=== PATIENT | male | born 1955 | race Caucasian/White ===

== ENCOUNTER → 2017-12-06 | Outpatient (CLI) | payer OTHER ==
[~2017-12-06] MED LIST: ASPIR 8181 MG PO; COREG CR10 MG PO; DIOVAN40 MG PO; FISH OIL1 IU PO; JANUVIA50 MG PO; LASIX20 MG PO; LIPITOR40 MG PO
[2017-12-06 07:23] LABS: BUN 25 mg/dl (7-24); CHLORIDE 108 mmol/L (98-107); CREATININE 0.93 mg/dL (0.70-1.30); POTASSIUM 3.9 mmol/L (3.5-5.1); SODIUM 143 mmol/L (136-145)
== END | disposition home or self-care (01) ==
LOC: LAB 06:53
PROVIDERS: Specialist
DX: I48.91 Unspecified atrial fibrillation (principal)

== ENCOUNTER 2018-04-01 18:36 | Inpatient (IN) | payer OTHER ==
[~2018-04-01] VITALS: Ht 177.8 cm; Wt 112.9 kg
[2018-04-01] VITALS (7 sets, daily range): BP systolic 112–168; BP diastolic 58–81
--- NOTE | ~2018-04-01 | EKG ---
[place], [place] ELECTROCARDIOGRAM REPORT NAME: MASSIMO DISLA UNIT #: [id number] ROOM: 526 DOCTOR: REJI DRAFT REPORT BIRTHDATE: [birth year] [facility] Test Date: 2018-04-01 Test Time: 18:51:20 Pat Name: MASSIMO DISLA Department: Room: 526 Gender: M Flumer: Zhanna Kovacs : 1955 Requested By: ROBBIE PALOMARES Order Number: [id number] Reading MD: Meagan Valdes MD Measurements Intervals [place] Rate: 79 P: 26 CT: 230 QRS: 241 QRSD: 135 T: 52 QT: 412 QTc: 473 Interpretive Statements Atrial-sensed ventricular-paced rhythm No further analysis attempted due to paced rhythm Baseline wander in lead(s) V5 Electronically Signed On 04-02-2018 13:44:48 PDT by Meagan Valdes MD CM:EKGRPT:ELECTROCARDIOGRAM REPORT [id number] ROBBIE MENDOZA DRAFT REPORT ROBBIE PALOMARES MD
--- NOTE | ~2018-04-01 | EKG ---
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
--- NOTE | ~2018-04-01 | EKG ---
[place], [place] ELECTROCARDIOGRAM REPORT NAME: MASSIMO IDSLA UNIT #: [id number] ROOM: 526 DOCTOR: REJI DRAFT REPORT BIRTHDATE: [birth year] [facility] Test Date: 2018-04-02 Test Time: 00:38:08 Pat Name: MASSIMO DISLA Department: Room: 526 Gender: M Server Engineer: : 1955 Requested By: ROBBIE PALOMARES Order Number: [id number] Reading MD: Meagan Valdes MD Measurements Intervals [place] Rate: 64 P: 50 [place]: 204 QRS: 227 QRSD: 158 T: 56 QT: 462 QTc: 477 Interpretive Statements Atrial-sensed ventricular-paced rhythm No further analysis attempted due to paced rhythm Electronically Signed On 04-02-2018 13:57:29 PDT by Meagan Valdes MD CM:EKGRPT:ELECTROCARDIOGRAM REPORT [id number] ROBBIE PALOMARES MD EPIPHZARA DRAFT REPORT ROBBIE PALOMARES MD
[2018-04-01] MEDS ORDERED: ENTRESTO 24 MG1 EACH PO (18:47)
[2018-04-01] MEDS ORDERED: XARE20MG PO (18:49)
[2018-04-01] MEDS ORDERED: SIMVASTATIN40 MG PO (18:50)
[2018-04-01] MEDS ORDERED: GLUCOPHAGE1000 MG PO (18:51)
[2018-04-01 19:19] LABS: BASO # 0.1 10*3/uL (0.0-0.1); BASO % 0.7 % (0.0-1.0); EOS # 0.3 10*3/uL (0.0-0.4); HEMATOCRIT 42.6 % (42.0-52.0); HEMOGLOBIN 14.6 g/dl (14.0-18.0); LYMPH # 2.3 10*3/uL (1.3-4.4); MEAN CELL VOLUME 90.3 fl (80.0-94.0); MEAN CORPUSCULAR HGB 30.9 pg (27.0-31.0); MEAN CORPUSCULAR HGB CONC 34.3 g/dl (33.0-37.0); MEAN PLATELET VOLUME 10.4 fl (9.6-12.3); MONO # 0.6 10*3/uL (0.1-1.0); MONO % 6.8 % (3.0-9.0); NEUT # 5.2 10*3/uL (2.3-7.9); NEUT % 61.3 % (47.0-73.0); PLATELET COUNT AUTOMATED 156 10*3/uL (130-400); RED BLOOD COUNT 4.72 10*6/uL (4.50-5.90); RED CELL DISTRI WIDTH 12.2 % (0-14.5); WHITE BLOOD COUNT 8.4 10*3/uL (4.8-10.8)
[2018-04-01 19:29] LABS: ACT PARTIAL THROMBO TIME 25.1 SECONDS (20.8-31.5); INTERNATIONAL NORM RATIO 1.1 (2.0-3.5)
[2018-04-01 19:37] LABS: ALBUMIN 4.1 gm/dl (3.1-4.5); ALKALINE PHOSPHATASE 45 U/L (45-117); BUN 21 mg/dl (7-24); CHLORIDE 105 mmol/L (98-107); CREATININE 1.08 mg/dL (0.70-1.30); POTASSIUM 3.9 mmol/L (3.5-5.1); SGOT/AST 30 IU/L (3-35); SGPT/ALT 46 U/L (12-78); SODIUM 138 mmol/L (136-145); TOTAL PROTEIN 7.6 gm/dL (6.4-8.2)
[2018-04-01 19:40] LABS: ETHYL ALCOHOL < 3.0 mg/dl (<3); TROPONIN I < 0.015 ng/ml (<0.045)
[2018-04-01 23:11] LABS: BILIRUBIN NEGATIVE (NEGATIVE); BLOOD NEGATIVE (NEGATIVE); CLARITY CLEAR (CLEAR); COLOR YELLOW (YELLOW); GLUCOSE NEGATIVE (NEGATIVE); KETONE NEGATIVE (NEGATIVE); LEUKO ESTERASE NEGATIVE (NEGATIVE); NITRITE NEGATIVE (NEGATIVE); PH 5.5 (5.0-9.0); SPECIFIC GRAVITY 1.015 (1.005-1.030); UROBILINOGEN 0.2 E.U./dl (0.2-1.0)
[2018-04-01 23:30] LABS: WBC 0-2 wbc/hpf (0-5)
[2018-04-02] VITALS: BP 109/55
[2018-04-02 06:52] LABS: BASO # 0.1 10*3/uL (0.0-0.1); BASO % 0.8 % (0.0-1.0); EOS # 0.3 10*3/uL (0.0-0.4); EOS % 4.5 % (1.0-4.0); HEMATOCRIT 40.9 % (42.0-52.0); HEMOGLOBIN 13.4 g/dl (14.0-18.0); LYMPH # 2.1 10*3/uL (1.3-4.4); MEAN CELL VOLUME 92.3 fl (80.0-94.0); MEAN CORPUSCULAR HGB 30.2 pg (27.0-31.0); MEAN CORPUSCULAR HGB CONC 32.8 g/dl (33.0-37.0); MEAN PLATELET VOLUME 10.5 fl (9.6-12.3); MONO # 0.7 10*3/uL (0.1-1.0); MONO % 8.7 % (3.0-9.0); NEUT # 4.5 10*3/uL (2.3-7.9); NEUT % 58.6 % (47.0-73.0); PLATELET COUNT AUTOMATED 138 10*3/uL (130-400); RED BLOOD COUNT 4.43 10*6/uL (4.50-5.90); RED CELL DISTRI WIDTH 12.3 % (0-14.5); WHITE BLOOD COUNT 7.6 10*3/uL (4.8-10.8)
[2018-04-02 07:19] LABS: ACT PARTIAL THROMBO TIME 26.9 SECONDS (20.8-31.5); INTERNATIONAL NORM RATIO 1.1 (2.0-3.5)
[2018-04-02 07:23] LABS: ALBUMIN 3.6 gm/dl (3.1-4.5); BUN 18 mg/dl (7-24); CHLORIDE 109 mmol/L (98-107); CHOLESTEROL 144 mg/dL (<200); CREATININE 0.91 mg/dL (0.70-1.30); POTASSIUM 4.1 mmol/L (3.5-5.1); SGOT/AST 23 IU/L (3-35); SGPT/ALT 41 U/L (12-78); SODIUM 142 mmol/L (136-145)
[2018-04-02 07:30] LABS: ALKALINE PHOSPHATASE 39 U/L (45-117); FREE T4 0.94 ng/dl (0.76-1.46); HDL CHOLESTEROL 40 mg/dl (40-60); LDL CHOLESTEROL 76 mg/dL (9-159); PHOSPHOROUS 3.8 mg/dL (2.5-4.9); TOTAL PROTEIN 6.7 gm/dL (6.4-8.2); TRIGLYCERIDES 142 mg/dl (<150); VLDL CHOLESTEROL 28 mg/dL (6-40)
[2018-04-02 08:00] VITALS: BP 126/64
[2018-04-02 09:30] LABS: VITAMIN D, 25-HYDROXY 14.3 ng/mL (30-100)
[2018-04-02 11:52] VITALS: BP 128/74
[2018-04-02 16:00] VITALS: BP 112/59
[2018-04-02 20:00] VITALS: BP 112/66
[2018-04-03] VITALS: BP 119/65
[2018-04-03 08:00] VITALS: BP 130/71
[2018-04-03 12:00] VITALS: BP 154/81
[2018-04-03 16:00] VITALS: BP 114/63
[2018-04-03] MEDS ORDERED: PACERONE400 MG PO (17:05)
[2018-04-03] MEDS ORDERED: GLIPIZIDE5 MG PO (17:05)
[2018-04-03] MEDS ORDERED: VITAMIN D31000 UNI1 PO (17:05)
== END 2018-04-03 17:45 | disposition home or self-care (01) | DRG 309 ==
LOC: ED 18:36 → 5E 20:05 → EDHOLD 20:05 → 5E 20:38
PROVIDERS: Emergency Medicine; Family Medicine
PROC: 4B02XTZ Measurement of Cardiac Defibrillator, External Approach (ICD-10-PCS; principal; 2018-04-01)
PROC: 4A02XM4 Measurement of Cardiac Total Activity, External Approach (ICD-10-PCS; 2018-04-03)
PROC: 3E073KZ Introduction of Other Diagnostic Substance into Coronary Artery, Percutaneous Approach (ICD-10-PCS; 2018-04-03)
DX: I47.2 Ventricular tachycardia (principal); I42.6 Alcoholic cardiomyopathy; I49.01 Ventricular fibrillation; E11.65 Type 2 diabetes mellitus with hyperglycemia; R06.82 Tachypnea, not elsewhere classified; I10 Essential (primary) hypertension; E55.9 Vitamin D deficiency, unspecified; I48.0 Paroxysmal atrial fibrillation; E78.5 Hyperlipidemia, unspecified; E66.9 Obesity, unspecified; Z79.899 Other long term (current) drug therapy; Z95.810 Presence of automatic (implantable) cardiac defibrillator; Z79.84 Long term (current) use of oral hypoglycemic drugs; Z68.33 Body mass index [BMI] 33.0-33.9, adult

== ENCOUNTER → 2020-05-09 | Outpatient (CLI) | payer OTHER | END | disposition home or self-care (01) | LOC: COVID19 00:32 | PROVIDERS: ATTEND Surgery | DX: Z01.812 Encounter for preprocedural laboratory examination (principal); Z20.828 Contact with and (suspected) exposure to other viral communicable diseases ==

== ENCOUNTER → 2020-05-12 | Day surgery (SDC) | payer OTHER ==
[~2020-05-12] VITALS: Ht 177.8 cm; Wt 95.3 kg
[~2020-05-12] MED LIST changes: +ENTRESTO 24 MG1 EACH PO; +GLIPIZIDE5 MG PO; +GLUCOPHAGE1000 MG PO; +PACERONE400 MG PO; +SIMVASTATIN40 MG PO; +VITAMIN D31000 UNI1 PO; +XARE20MG PO
[2020-05-12 08:30] VITALS: BP 127/56
[2020-05-12 09:30] VITALS: BP 102/53
[2020-05-12 09:45] VITALS: BP 99/58
[2020-05-12 10:00] VITALS: BP 114/60
== END | disposition home or self-care (01) ==
LOC: SDC 05-09 10:15
PROVIDERS: ATTEND Surgery
DX: Z12.11 Encounter for screening for malignant neoplasm of colon (principal); I48.91 Unspecified atrial fibrillation; E11.9 Type 2 diabetes mellitus without complications; I11.0 Hypertensive heart disease with heart failure; I50.9 Heart failure, unspecified; K46.0 Unspecified abdominal hernia with obstruction, without gangrene; Z98.890 Other specified postprocedural states

== ENCOUNTER → 2020-05-18 | Outpatient (CLI) | payer OTHER | END | disposition home or self-care (01) | LOC: COVID19 00:57 | PROVIDERS: ATTEND Surgery | DX: Z01.818 Encounter for other preprocedural examination (principal); U07.1 COVID-19 ==

== ENCOUNTER → 2020-05-20 | Outpatient (CLI) | payer OTHER | END | disposition home or self-care (01) | LOC: COVID19 13:57 | PROVIDERS: ATTEND Emergency Medicine | DX: Z20.828 Contact with and (suspected) exposure to other viral communicable diseases (principal) ==

== ENCOUNTER → 2020-05-23 | Outpatient (CLI) | payer OTHER | END | disposition home or self-care (01) | LOC: COVID19 11:51 | PROVIDERS: ATTEND Emergency Medicine | DX: Z20.828 Contact with and (suspected) exposure to other viral communicable diseases (principal) ==

== ENCOUNTER → 2020-05-24 | Outpatient (CLI) | payer OTHER | END | disposition home or self-care (01) | LOC: COVID19 00:24 | PROVIDERS: ATTEND Emergency Medicine | DX: Z20.828 Contact with and (suspected) exposure to other viral communicable diseases (principal) ==

== ENCOUNTER 2020-09-02 18:48 | Emergency (ER) | payer OTHER ==
[~2020-09-02] VITALS: Ht 177.8 cm; Wt 99.8 kg
== END 2020-09-02 20:08 | disposition home or self-care (01) ==
LOC: ED 18:48
DX: S00.93XA Contusion of unspecified part of head, initial encounter (principal); Z79.899 Other long term (current) drug therapy; W18.2XXA Fall in (into) shower or empty bathtub, initial encounter; Y93.89 Activity, other specified; Y92.89 Other specified places as the place of occurrence of the external cause; Y99.8 Other external cause status

== ENCOUNTER → 2022-06-27 | Outpatient (CLI) | payer OTHER ==
[2022-06-27 11:20] LABS: BASO # 0.1 10*3/uL (0.0-0.1); BASO % 0.7 % (0.0-1.0); EOS # 0.2 10*3/uL (0.0-0.4); EOS % 2.2 % (1.0-4.0); HEMATOCRIT 47.8 % (42.0-52.0); LYMPH # 1.7 10*3/uL (1.3-4.4); LYMPH % 19.6 % (27.0-41.0); MEAN CELL VOLUME 92.6 fl (80.0-94.0); MEAN CORPUSCULAR HGB 30.8 pg (27.0-31.0); MEAN CORPUSCULAR HGB CONC 33.3 g/dl (33.0-37.0); MEAN PLATELET VOLUME 10.5 fl (9.6-12.3); MONO # 0.6 10*3/uL (0.1-1.0); MONO % 6.7 % (3.0-9.0); NEUT # 6.1 10*3/uL (2.3-7.9); NEUT % 70.3 % (47.0-73.0); PLATELET COUNT AUTOMATED 153 10*3/uL (130-400); RED BLOOD COUNT 5.16 10*6/uL (4.50-5.90); RED CELL DISTRI WIDTH 12.3 % (0-14.5); WHITE BLOOD COUNT 8.7 10*3/uL (4.8-10.8)
[2022-06-27 11:33] LABS: BUN 18 mg/dl (9-23); CHLORIDE 106 mmol/L (98-107); CREATININE 0.94 mg/dL (0.70-1.30); POTASSIUM 4.4 mmol/L (3.4-5.1); SODIUM 140 mmol/L (136-145)
== END | disposition home or self-care (01) ==
LOC: LAB 10:15
PROVIDERS: ATTEND Internal Medicine Clinical Cardiac Electrophysiology
DX: Z45.02 Encounter for adjustment and management of automatic implantable cardiac defibrillator (principal); I42.9 Cardiomyopathy, unspecified

== ENCOUNTER → 2023-02-13 | Outpatient (CLI) | payer OTHER ==
[2023-02-13 08:33] LABS: URINE CREATININE RANDOM 231.63 mg/dL
[2023-02-13 08:50] LABS: CHOLESTEROL 128 mg/dL (<200); LDL CHOLESTEROL 70 mg/dL (9-159); TRIGLYCERIDES 67 mg/dl (<150)
== END | disposition home or self-care (01) ==
LOC: LAB 07:52
PROVIDERS: ATTEND Internal Medicine
DX: E11.9 Type 2 diabetes mellitus without complications (principal); E78.00 Pure hypercholesterolemia, unspecified

== ENCOUNTER → 2023-06-05 | Outpatient (CLI) | payer OTHER | END | disposition home or self-care (01) | LOC: CARD 06-04 13:00 | PROVIDERS: ATTEND Internal Medicine | DX: I51.7 Cardiomegaly (principal); Z86.79 Personal history of other diseases of the circulatory system ==